=== PATIENT | male | born 1985 | race Caucasian/White ===

== ENCOUNTER 2018-08-02 15:12 | Emergency (ER) | payer SELFPAY ==
[2018-08-02] MEDS ORDERED: MAGNESIUM HYDROXIDE/AL HYDROX 30 ML, LIDOCAINE VISC 2% 15ML 15 ML PO ONE ×2 (15:24)
[2018-08-02] MEDS ORDERED: 0.9 % SODIUM CHLORIDE 1,000 ML BAG IV ONE (15:24)
[2018-08-02] MEDS ORDERED: ONDANSETRON HCL IV 4 MG/2 ML VIAL IV ONE (15:24)
--- NOTE | 2018-08-02 15:29 | Emergency Department Record ---
History of Present Illness - General Chief Complaint: Abdominal Pain Stated Complaint: ABD PAIN Time Seen by Provider: 08/02/18 15:14 Source: Patient Mode of Arrival: Ambulatory Limitations: No limitations - History of Present Illness Initial Comments: The patient is here due to intermittent AP for 2 weeks. The pain has been worse for the last 3 days and sometimes is worse after eating. The pain is mainly located in the epigastric area and minimally the RUQ. He did have loose stools 3 days and and a fever with vomiting last night. Presently he states the pain is improved and he denies ANY lower AP. The patient has no hx of similar issues and no previous abdominal surgeries. MD Complaint: Abdominal pain Onset/Timin -: Week(s) Location: Epigastric, RUQ Severity scale (1-10): 4 Quality: Sharp Consistency: Intermittent Improves With: Nothing Worsens With: Eating Associated Symptoms: Fever - Related Data Previous Rx's Medication Instructions Recorded Sucralfate [Carafate] 1 gm PO QID #28 tablet 08/02/18 Allergies Allergy/AdvReac Type Severity Reaction Status Date / Time Penicillins Allergy ANAPHYLAXIS Verified 08/02/18 15:26 Travel Screening - Travel/Exposure Within Last 30 Days Have you traveled within the last 30 days?: No - Travel/Exposure Within Last Year Have you traveled outside the [place] in the last year?: No - Additonal Travel Details Have you been exposed to anyone with a communicable illness?: No - Travel Symptoms Symptom Screening: None Review of Systems Constitutional: Denies: Chills, Fever Eyes: Denies: Eye discharge ENT: Denies: Congestion Respiratory: Denies: Cough, Dyspnea Cardiovascular: Denies: Arrhythmia Endocrine: Denies: Fatigue Gastrointestinal: Reports: Abdominal pain, Diarrhea, Nausea, Vomiting Genitourinary: Denies: Dysuria Musculoskeletal: Denies: Arthralgia Skin: Denies: Bruising Past Medical History - SOCIAL HISTORY Smoking Status: Never smoker Alcohol Use: Rare Drug Use: None - RESPIRATORY Hx Respiratory Disorders: No - CARDIOVASCULAR Hx Cardio Disorders: No - NEURO Hx Neuro Disorders: No - GI Hx GI Disorders: No - Hx Genitourinary Disorders: No - ENDOCRINE Hx Endocrine Disorders: No - MUSCULOSKELETAL Hx Musculoskeletal Disorders: No - PSYCH Hx Psych Problems: No - HEMATOLOGY/ONCOLOGY Hx Hematology/Oncology Disorders: No Family Medical History Any Significant Family History?: No Physical Exam - General General Appearance: Alert, Oriented x3, Cooperative, No acute distress - Head Head exam: Atraumatic, Normocephalic, Normal inspection - Eye Eye exam: Normal appearance, PERRL, EOMI - ENT Throat exam: Normal inspection. negative: Tonsillar erythema, Tonsillar exudate - Neck Neck exam: Normal inspection, Full ROM. negative: Tenderness - Respiratory Respiratory exam: Normal lung sounds bilaterally. negative: Respiratory distress - Cardiovascular Cardiovascular Exam: Regular rate, Normal rhythm, Normal heart sounds - GI/Abdominal GI/Abdominal exam: Soft, Tenderness (There is mild epigastric tenderness to palpation but no guarding or rebound. There is mild RUQ tenderness and NO lower abdominal tenderness.). negative: Distended, Guarding, Rebound, Rigid - Extremities Extremities exam: Normal inspection, Full ROM, Normal capillary refill. negative: Tenderness - Back Back exam: Reports: Normal inspection - Neurological Neurological exam: Alert, Normal gait. negative: Abnormal gait, Motor sensory deficit Course Vital Signs 08/02/18 15:13 Temperature 97.8 F Pulse Rate 89 Respiratory 16 Rate Blood Pressure 125/78 Pulse Ox 98 - Reevaluation(s) Reevaluation #1: The patient is doing much better at this time. He is doing a lot better and has no pain or discomfort after getting back from xray. 08/02/18 16:32 Reevaluation #2: The patient is doing a lot better at this time. He states his pain has resolved and he is up walking with no discomfort. The patient is very hungry and ready for home. On exam his abdomen is very soft and nontender in all 4 quads with no epigastric tenderness. I did discuss the need for Carafate for home and F/U with a family doctor for recheck next week. 08/02/18 17:18 Medical Decision Making - Data Complexity MDM Data: Labs Ordered and/or Reviewed, X-Ray Ordered and/or Reviewed - Lab Data Result diagrams: 08/02/18 15:15 08/02/18 15:15 - Radiology Data Radiology results: Report reviewed (US: Neg for any acute changes.) Disposition Disposition: Discharge Clinical Impression: Gastritis Qualifiers: Gastritis type: unspecified gastritis Chronicity: acute Gastritis bleeding: without bleeding Qualified Code(s): K29.00 - Acute gastritis without bleeding Disposition: Home, Self-Care Condition: (2) Stable Instructions: Abdominal Pain (ED) Additional Instructions: Please eat a very bland diet and take the Carafate as directed. Please see a family doctor next week for recheck. Return to the ER for any return of the AP, nausea, vomiting, or fever. Prescriptions: Sucralfate [Carafate] 1 gm PO QID #28 tablet Forms: Patient Portal Access Time of Disposition: 17:20 Quality - Quality Measures Quality Measures: N/A - Blood Pressure Screening View Details: Yes Does Patient Have Any of the Following: No Blood Pressure Classification: Pre-Hypertensive BP Reading Systolic Measurement: 125 Diastolic Measurement: 78 Screening for High Blood Pressure: < Pre-Hypertensive BP, F/U Documented > [ G8950] Pre-Hypertensive Follow-up Interventions: Referral to alternative/primary care provider.
[2018-08-02 15:35] LABS: BASO % 0.2 % (0-6); EOS % 2.2 % (0-6); GRAN % 67.4 % (47-80); HEMOGLOBIN 15.9 gm/dl (14.0-18.0); LYMPH % 23.4 % (16-45); MEAN CELL VOLUME 85.1 fl (81-97); MEAN CORPUSCULAR HEMOGLOBIN 28.8 pg (27-33); MEAN CORPUSCULAR HGB CONC 33.8 g/dl (32-36); MEAN PLATELET VOLUME 9.5 fl (7.4-10.4); MONO % 6.8 % (0-9); PLATELET COUNT 425 K/uL (130-400); RED BLOOD COUNT 5.52 M/uL (4.40-5.70); RED CELL DISTRIBUTION WIDTH 12.9 % (11.5-14.5); WHITE BLOOD COUNT W/O DIFF 9.4 K/uL (4.2-12.2)
[2018-08-02 15:44] LABS: BLOOD UREA NITROGEN 7 mg/dL (6-20); CREATININE 0.8 mg/dL (0.7-1.2); EST GLOMERULAR FILTRATION RATE > 60 mL/min
[2018-08-02 15:45] LABS: LIPASE 15 U/L (13-60); TOTAL PROTEIN 8.6 g/dL (6.6-8.7)
[2018-08-02 15:47] LABS: GLUCOSE,RANDOM 125 mg/dL (74-109)
[2018-08-02 15:49] LABS: ALT/SGPT 40 U/L (<41); AST/SGOT 24 U/L (10.0-50.0)
[2018-08-02 15:50] LABS: ALBUMIN 4.6 g/dL (4.0-5.0); ALKALINE PHOSPHATASE 56 U/L (40-129)
[2018-08-02 15:51] LABS: BILIRUBIN,DIRECT < 0.2 mg/dL (0-0.3)
[2018-08-02 16:35] LABS: URINE APPEARANCE SL CLOUDY; URINE BILIRUBIN NEGATIVE (NEGATIVE); URINE BLOOD NEGATIVE (NEGATIVE); URINE COLOR YELLOW; URINE GLUCOSE (UA) NEGATIVE (NEGATIVE); URINE KETONE NEGATIVE (NEGATIVE); URINE LEUKOCYTE ESTERASE NEGATIVE (NEGATIVE); URINE NITRITE NEGATIVE (NEGATIVE); URINE PROTEIN NEGATIVE (NEGATIVE); URINE UROBILINOGEN 0.2 E.U./dL (0.20 - 1.00)
--- NOTE | 2018-08-04 14:08 | ULTRASOUND REPORT ---
EXAM: ULTRASOUND ABDOMEN, COMPLETE HISTORY: RIGHT UPPER QUADRANT PAIN FOR TWO WEEKS. TECHNIQUE: Real-time complete abdomen ultrasound. COMPARISON: None. FINDINGS: The gallbladder is unremarkable. There are no gallstones seen. No wall thickening or pericholecystic fluid. The bile ducts are not dilated. The common duct is about 4 mm in diameter. The pancreas is not well seen, likely obscured by overlying bowel gas. No gross abnormality. The abdominal aorta and inferior vena cava are unremarkable. The liver is diffusely echogenic, which is nonspecific but likely due to hepatic steatosis. The kidneys and spleen are unremarkable. The right kidney measures 11.3 cm in length, the left kidney 12.1 cm. IMPRESSION: 1. NO ACUTE ABDOMINAL PROCESS IDENTIFIED. 2. DIFFUSE INCREASE IN HEPATIC ECHOGENICITY, WHICH IS PROBABLY RELATED TO HEPATIC STEATOSIS. 3. PANCREAS NOT WELL VISUALIZED, LIKELY OBSCURED BY BOWEL GAS. JOB NUMBER: [id number] [facility]
== END 2018-08-02 17:39 | disposition home or self-care (01) ==
LOC: ER 15:12
DX: K29.00 Acute gastritis without bleeding (principal); R10.11 Right upper quadrant pain; R10.84 Generalized abdominal pain; R19.7 Diarrhea, unspecified; R11.11 Vomiting without nausea
CPT/HCPCS: 99284 ×2; 96374; 83690; 85025; 80076; 80048; 81003; 76700; J2405; J7030

== ENCOUNTER 2018-08-03 06:29 | Emergency (ER) | payer SELFPAY ==
[2018-08-03] MEDS ORDERED: 0.9 % SODIUM CHLORIDE 1,000 ML BAG IV ONE (06:59)
[2018-08-03] MEDS ORDERED: ONDANSETRON HCL IV 4 MG/2 ML VIAL IVP ONE (06:59)
[2018-08-03] MEDS ORDERED: PANTOPRAZOLE SODIUM IV 40 MG VIAL IVP ONE (07:00)
[2018-08-03] MEDS ORDERED: MORPHINE SULFATE 10 MG/ML VIAL IVP ONE (07:00)
--- NOTE | 2018-08-03 07:05 | Emergency Department Record ---
History of Present Illness - General Chief Complaint: Abdominal Pain Stated Complaint: ULCER Time Seen by Provider: 08/03/18 06:54 Source: Patient Mode of Arrival: Ambulatory Limitations: No limitations - History of Present Illness Initial Comments: 33 male presents with recurrent abdominal pain. The pain has been recurrent over the last two weeks. No vomiting but he does have nausea. No changes in the stools or bowel movements. No fevers. The pain is located in the middle of the abdomen and at times RLQ, RUQ, and sometimes he feels the pain in the back. No PCP. No history of endoscopy. He does take Aleve. He was seen in the ED yesterday started on Carafate. He is not on a PPI or H2 shahida. He took his Aleve last night for the pain. MD Complaint: Abdominal pain Onset/Timin -: Week(s) (2) Location: Epigastric Radiation: Epigastric, LLQ, RLQ Migration to: Epigastric Severity scale (1-10): 8 Quality: Burning Consistency: Constant Improves With: Other Worsens With: Movement, Other Associated Symptoms: Anorexia - Related Data Previous Rx's Medication Instructions Recorded Sucralfate [Carafate] 1 gm PO QID #28 tablet 08/02/18 Ranitidine HCl [Zantac] 150 mg PO BID #60 tablet 08/03/18 Allergies Allergy/AdvReac Type Severity Reaction Status Date / Time Penicillins Allergy ANAPHYLAXIS Verified 08/02/18 15:26 Travel Screening - Travel/Exposure Within Last 30 Days Have you traveled within the last 30 days?: No - Travel Symptoms Symptom Screening: None Review of Systems Constitutional: Denies: Chills, Fever, Malaise, Weakness Eyes: Denies: Eye discharge ENT: Denies: Congestion Respiratory: Denies: Cough, Dyspnea, Hemoptysis, Stridor, Wheezes Cardiovascular: Denies: Chest pain, Palpitations, Syncope Endocrine: Denies: Fatigue Gastrointestinal: Reports: Abdominal pain, Nausea. Denies: Diarrhea, Vomiting Genitourinary: Denies: Dysuria, Frequency, Hematuria Musculoskeletal: Reports: Back pain. Denies: Arthralgia, Neck pain Skin: Denies: Bruising, Change in color, Rash Neurological: Denies: Headache Psychiatric: Denies: Anxiety Hematological/Lymphatic: Denies: Easy bleeding, Easy bruising Past Medical History - SOCIAL HISTORY Smoking Status: Never smoker Alcohol Use: None Drug Use: None - RESPIRATORY Hx Respiratory Disorders: No - CARDIOVASCULAR Hx Cardio Disorders: No - NEURO Hx Neuro Disorders: No - GI Hx GI Disorders: No - Hx Genitourinary Disorders: No - ENDOCRINE Hx Endocrine Disorders: No - MUSCULOSKELETAL Hx Musculoskeletal Disorders: No - PSYCH Hx Psych Problems: No - HEMATOLOGY/ONCOLOGY Hx Hematology/Oncology Disorders: No Family Medical History Any Significant Family History?: No Family Hx Comment (NOT TO BE USED IN PLACE OF ITEMS BELOW): denies Physical Exam - General General Appearance: Alert, Oriented x3, Cooperative, No acute distress Limitations: No limitations - Head Head exam: Atraumatic - Eye Eye exam: Normal appearance. negative: Conjunctival injection, Scleral icterus - ENT ENT exam: Normal exam, Mucous membranes moist Ear exam: Normal external inspection Nasal Exam: Normal inspection Mouth exam: Normal external inspection - Neck Neck exam: Normal inspection - Respiratory Respiratory exam: Normal lung sounds bilaterally. negative: Respiratory distress - Cardiovascular Cardiovascular Exam: Regular rate, Normal rhythm, Normal heart sounds - GI/Abdominal GI/Abdominal exam: Soft, Guarding, Tenderness (mid tenderness just above the umbilicus) - Rectal Rectal exam: Deferred - exam: Deferred - Extremities Extremities exam: Normal inspection - Back Back exam: Denies: CVA tenderness (R), CVA tenderness (L) - Neurological Neurological exam: Alert, Oriented X3 - Psychiatric Psychiatric exam: Normal affect, Normal mood - Skin Skin exam: Dry, Intact, Normal color, Warm Course Vital Signs 08/03/18 06:47 Temperature 98.7 F Pulse Rate [ 77 Pulse Ox Probe] Respiratory 16 Rate Blood Pressure 139/111 [Left Arm] Pulse Ox 96 - Reevaluation(s) Reevaluation #1: 08/03/18 09:05 The labs were reviewed. No acute changes or abnormalities The CT of the abdomen was negative for acute findings EMR of yesterday's ED visit was reviewed as was the [place] The patient was instructed to avoid NSAIDS and was started on Zantac He will be calling for a PCP and then can get a GI referral if indicated Medical Decision Making - Lab Data Result diagrams: 08/03/18 07:10 08/03/18 07:10 Disposition Disposition: Discharge Clinical Impression: Abdominal pain Disposition: Home, Self-Care Condition: (1) Good Instructions: Abdominal Pain (ED) Additional Instructions: Avoid taking anti-inflammatory medications like Aleve (naprosyn), Motrin ( ibuprofen). Call the family practice clinic for a new doctor or the doctor of your choice Take the Zantac as well to reduce stomach acid Prescriptions: Ranitidine HCl [Zantac] 150 mg PO BID #60 tablet Forms: Patient Portal Access Time of Disposition: 09:07 Quality - Quality Measures Quality Measures: N/A - Blood Pressure Screening Does Patient Have Any of the Following: No Blood Pressure Classification: Hypertensive Reading Systolic Measurement: 137 Diastolic Measurement: 96 Screening for High Blood Pressure: < Pre-Hypertensive BP, F/U Documented > [ G8950] Pre-Hypertensive Follow-up Interventions: Referral to alternative/primary care provider.
[2018-08-03 07:20] LABS: BASO % 0.2 % (0-6); EOS % 2.2 % (0-6); GRAN % 72.4 % (47-80); HEMATOCRIT 44.6 % (42.0-52.0); HEMOGLOBIN 15.3 gm/dl (14.0-18.0); LYMPH % 16.9 % (16-45); MEAN CELL VOLUME 85.6 fl (81-97); MEAN CORPUSCULAR HEMOGLOBIN 29.4 pg (27-33); MEAN CORPUSCULAR HGB CONC 34.3 g/dl (32-36); MEAN PLATELET VOLUME 9.4 fl (7.4-10.4); MONO % 8.3 % (0-9); PLATELET COUNT 403 K/uL (130-400); RED BLOOD COUNT 5.21 M/uL (4.40-5.70); RED CELL DISTRIBUTION WIDTH 12.7 % (11.5-14.5); WHITE BLOOD COUNT W/O DIFF 10.1 K/uL (4.2-12.2)
[2018-08-03 07:32] LABS: BLOOD UREA NITROGEN 10 mg/dL (6-20); CREATININE 0.9 mg/dL (0.7-1.2); EST GLOMERULAR FILTRATION RATE > 60 mL/min; LIPASE 17 U/L (13-60); TOTAL PROTEIN 7.9 g/dL (6.6-8.7)
[2018-08-03 07:34] LABS: GLUCOSE,RANDOM 124 mg/dL (74-109)
[2018-08-03 07:37] LABS: ALB/GLOB RATIO 1.2 (1.1-1.8); ALBUMIN 4.3 g/dL (4.0-5.0); ALKALINE PHOSPHATASE 52 U/L (40-129); ALT/SGPT 37 U/L (<41); AST/SGOT 25 U/L (10.0-50.0)
--- NOTE | 2018-08-06 10:39 | CT SCAN REPORT ---
EXAM: POST CONTRAST CT OF THE ABDOMEN AND PELVIS HISTORY: UPPER ABDOMINAL PAIN FOR TWO WEEKS. TECHNIQUE: CT of the abdomen and pelvis was obtained with 100 ml Omnipaque 300 intravenous contrast as well as oral contrast. Comparison: Abdomen ultrasound 08/02/18. FINDINGS: The lung bases are clear. Possible hepatic steatosis, better assessed on previous ultrasound. The liver is otherwise unremarkable. Unremarkable appearance of the gallbladder, pancreas, and spleen. Unremarkable appearance of the adrenal glands. Likely small left renal cortical cysts. No hydronephrosis. Symmetric renal perfusion. No focal colonic thickening or inflammatory change. Normal appendix. The stomach and small bowel are nondilated. Oral contrast is seen within the stomach and proximal/mid small bowel loops. No free air or free fluid. No mesenteric or retroperitoneal lymphadenopathy. The abdominal aorta is not dilated. Unremarkable appearance of the urinary bladder. No acute osseous findings. IMPRESSION: 1. NO ACUTE FINDINGS IN THE ABDOMEN OR PELVIS. 2. LIKELY TINY LEFT RENAL CORTICAL CYSTS. 3. POSSIBLE HEPATIC STEATOSIS, BETTER APPRECIATED ON COMPARISON ULTRASOUND. [facility]: [id number] [facility]
== END 2018-08-03 09:22 | disposition home or self-care (01) ==
LOC: ER 06:29
DX: R10.13 Epigastric pain (principal); R11.0 Nausea
CPT/HCPCS: 99284 ×2; 96365; 96375; 83690; 85025; 80053; 74177; Q9967; J2405; J2270; C9113; J7030